=== PATIENT | male | born 1975 | race Native Hawaiian/Other Pacific Islander ===

== ENCOUNTER 2019-09-13 18:45 | Emergency (ER) | payer MEDICARE, MEDICAID ==
--- NOTE | 2019-09-13 19:26 | ED Physician Documentation ---
History of Present Illness - Stated complaint Stated Complaint: Leg swelling - Chief complaint Chief Complaint: Ext Problem - History obtained from History obtained from: Patient, Family - History of Present Illness Timing: Today (44-year-old gentleman presents with lower extremity edema, symmetric and painless. Is not associated with shortness of breath. He has a history of end-stage renal disease I think due to diabetic nephropathy. [place] and has not had dialysis in the last 2 days. There is no arrangement made ahead of time to get his dialysis after he moved. His crime scene analyst is a Dr. Goznalez at [facility] in [place]. He is completely anuric.) Review of Systems Ten Systems: 10 systems reviewed and negative Constitutional: denies: Fever, Chills Nose: denies: Rhinorrhea / runny nose Throat: denies: Sore throat Cardiac: denies: Chest pain / pressure, Palpitations Respiratory: denies: Dyspnea, Cough PD PAST MEDICAL HISTORY - Present Medications Home Medications: Ambulatory Orders Medication Instructions Recorded Confirmed Acetaminophen [Mapap] 325 mg PO Q6HR PRN 09/13/19 09/13/19 Atorvastatin Calcium 10 mg PO DAILY 09/13/19 09/13/19 Bisacodyl [C-Lax Laxative] 5 mg PO DAILY 09/13/19 09/13/19 Cinacalcet HCl 30 mg PO DAILY 09/13/19 09/13/19 Diltiazem HCl [Diltiazem 24Hr ER] 180 mg PO DAILY 09/13/19 09/13/19 Nitroglycerin [Nitrostat] 0.4 mg [id number] PRN PRN 09/13/19 09/13/19 Polyethylene Glycol 3350 2 applic PO TID 09/13/19 09/13/19 [Powderlax] Senna [Senokot] 8.6 mg PO BID 09/13/19 09/13/19 Sevelamer Carbonate 1,600 mg PO TID 09/13/19 09/13/19 Tamsulosin [Flomax] 0.4 mg PO DAILY 09/13/19 09/13/19 Warfarin Sodium 1 mg PO 1-2XD 09/13/19 09/13/19 Warfarin Sodium 5 mg PO DAILY 09/13/19 09/13/19 - Allergies Allergies/Adverse Reactions: Allergies Allergy/AdvReac Type Severity Reaction Status Date / Time No Known Drug Allergies Allergy Verified 09/13/19 18:48 PD ED PE NORMAL - Vitals Vital signs reviewed: Yes - General General: Alert and oriented X 3, No acute distress - HEENT HEENT: PERRL, EOMI - Neck Neck: Supple, no meningeal sign, No bony TTP - Cardiac Cardiac: RRR, No murmur - Respiratory Respiratory: No respiratory distress, Clear bilaterally - Abdomen Abdomen: Non tender - Back Back: No CVA TTP, No spinal TTP - Derm Derm: Normal color, Warm and dry - Extremities Extremities: Other (Massive pedal edema of both legs, symmetric. He is missing the fourth and fifth toes of the right foot, he has little ulcers on the second and third toes of the right foot and a small one on the second toe of the left foot.) - Neuro Neuro: Alert and oriented X 3, Normal speech Results - Vitals Vitals: Vital Signs - 24 hr 09/13/19 09/13/19 09/13/19 18:49 19:37 19:42 Temperature 37.0 C Heart Rate 74 78 Respiratory 20 18 20 Rate Blood Pressure 123/92 H 113/83 H O2 Saturation 93 99 09/13/19 19:54 Temperature Heart Rate Respiratory 20 Rate Blood Pressure O2 Saturation Oxygen O2 Source Room air - Labs Labs: Laboratory Tests 09/13/19 09/13/19 09/13/19 19:39 19:39 19:39 WBC 6.1 RBC 3.52 L Hgb 10.5 L Hct 32.9 L MCV 93.5 MCH 29.8 MCHC 31.9 L RDW 16.5 H Plt Count 102 L MPV 9.2 Neut # (Auto) 3.9 Lymph # (Auto) 1.2 L [place] # (Auto) 0.5 Eos # (Auto) 0.4 Baso # (Auto) 0.1 Absolute Nucleated RBC 0.00 Nucleated RBC % 0.0 PT INR Sodium 133 L Potassium 4.3 Chloride 92 L Carbon Dioxide 25 Anion Gap 16.0 H BUN 65 H Creatinine 8.5 H* Estimated GFR (MDRD) 7 L Glucose 143 H Calcium 9.2 Phosphorus 6.0 H Magnesium 2.9 H Total Bilirubin 1.7 H AST 12 ALT 10 Alkaline Phosphatase 126 H B-Natriuretic Peptide 363 H Total Protein 9.0 H Albumin 4.1 Globulin 4.9 H Albumin/Globulin Ratio 0.8 L Lipase 46 09/13/19 19:39 WBC RBC Hgb Hct MCV MCH MCHC RDW Plt Count MPV Neut # (Auto) Lymph # (Auto) [place] # (Auto) Eos # (Auto) Baso # (Auto) Absolute Nucleated RBC Nucleated RBC % PT 43.0 H INR 4.1 H Sodium Potassium Chloride Carbon Dioxide Anion Gap BUN Creatinine Estimated GFR (MDRD) Glucose Calcium Phosphorus Magnesium Total Bilirubin AST ALT Alkaline Phosphatase B-Natriuretic Peptide Total Protein Albumin Globulin Albumin/Globulin Ratio Lipase PD MEDICAL DECISION MAKING - ED course ED course: This is a 44-year-old gentleman with anasarca due to missing his dialysis today. Unfortunately we do not have dialysis at this facility. His crime scene analyst is a Peter Gonzalez in [place]. I will call them and see if we can make arrangements for him to have dialysis locally tomorrow. I was able to speak with his crime scene analyst, Dr. Peter Gonzalez in [place].He said it would not be possible to make arrangements for Outpatient dialysis tomorrow and recommended transfer for inpatient dialysis. Subsequently I spoke with the crime scene analyst at [facility], Dr. Fung who will see him in consultation and defers to the hospitalist service there for admission. Accepted to [facility] by Dr. Baker, the hospitalist there at approximately 8:50 PM and cobras were completed. Departure - Departure Disposition: 02 Transfer Acute Care Hosp Clinical Impression: Anasarca, ESRD (end stage renal disease) Condition: Serious
[2019-09-13 19:45] LABS: BASOPHILS # (AUTO) 0.1 10^3/uL (0.0-0.1); BASOPHILS % (AUTO) 0.8 %; EOSINOPHILS # (AUTO) 0.4 10^3/uL (0.0-0.7); EOSINOPHILS % (AUTO) 7.2 %; HGB - HEMOGLOBIN 10.5 g/dL (14.0-18.0); LYMPHOCYTES # (AUTO) 1.2 10^3/uL (1.5-3.5); LYMPHOCYTES % (AUTO) 19.9 %; MEAN CORPUSCULAR HEMOGLOBIN 29.8 pg (27.0-31.0); MEAN CORPUSCULAR HGB CONC 31.9 g/dL (32.0-36.0); MEAN CORPUSCULAR VOLUME 93.5 fL (80.0-94.0); MEAN PLATELET VOLUME 9.2 fL (7.4-11.4); MONOCYTES # (AUTO) 0.5 10^3/uL (0.0-1.0); MONOCYTES % (AUTO) 8.2 %; NEUTROPHILS # (AUTO) 3.9 10^3/uL (1.5-6.6); NEUTROPHILS % (AUTO) 63.4 %; PLT - PLATELET COUNT 102 10^3/uL (130-450); RED BLOOD COUNT 3.52 10^6/uL (4.70-6.10); RED CELL DISTRIBUTION WIDTH 16.5 % (12.0-15.0); WHITE BLOOD COUNT 6.1 x10^3/uL (4.8-10.8)
[2019-09-13 20:02] LABS: ALBUMIN 4.1 g/dL (3.2-5.5); ALBUMIN/GLOBULIN RATIO 0.8 (1.0-2.2); BILIRUBIN,TOTAL 1.7 mg/dL (0.2-1.0); CALCIUM 9.2 mg/dL (8.5-10.3); CREATININE 8.5 mg/dL (0.6-1.2); MAGNESIUM 2.9 mg/dL (1.7-2.8)
[2019-09-13 20:43] LABS: INR 4.1 (0.8-1.2)
[2019-09-13] MEDS ORDERED: BACITRACIN ZINC OINT 1 PACKET TOP STA (21:43)
[2019-09-13 22:16] VITALS: BP 125/65
== END 2019-09-13 22:42 | disposition short-term general hospital (02) ==
LOC: ED 18:45
DX: E11.22 Type 2 diabetes mellitus with diabetic chronic kidney disease (principal); N18.6 End stage renal disease; Z99.2 Dependence on renal dialysis; R60.1 Generalized edema; E11.622 Type 2 diabetes mellitus with other skin ulcer; L97.529 Non-pressure chronic ulcer of other part of left foot with unspecified severity; L97.519 Non-pressure chronic ulcer of other part of right foot with unspecified severity; Z89.421 Acquired absence of other right toe(s)
CPT/HCPCS: 36415; 80053; 83690; 83735; 83880; 84100; 85025; 85610; 99284; 99285

== ENCOUNTER 2019-09-13 22:46 | Outpatient (CLI) | payer MEDICARE, MEDICAID | END 2019-09-13 22:47 | disposition short-term general hospital (02) | LOC: EMS 22:46 | PROVIDERS: ATTEND Surgery | DX: N18.6 End stage renal disease (principal); R60.0 Localized edema; Z99.2 Dependence on renal dialysis | CPT/HCPCS: A0425; A0428 ==

== ENCOUNTER 2019-11-07 00:27 | Outpatient (CLI) | payer MEDICARE, MEDICAID | END 2019-11-07 00:28 | disposition home or self-care (01) | LOC: EMS 00:27 | PROVIDERS: ATTEND Surgery | DX: R58 Hemorrhage, not elsewhere classified (principal) | CPT/HCPCS: A0425; A0429 ==

== ENCOUNTER 2019-11-07 00:49 | Emergency (ER) | payer MEDICARE, MEDICAID ==
--- NOTE | 2019-11-07 00:43 | ED Physician Documentation ---
History of Present Illness - Stated complaint Stated Complaint: BLEEDING FISTULA - History obtained from History obtained from: Patient, Family (Patient is a 44-year-old male who is a Monday dialysis patient george noticed some oozing to his fistula site called 911 and presents to the ER. Patient speaks some moan at baseline his family members here to translate denies any recent fevers or cough here to make sure bleeding is controlled for the AV fistula denies taking anticoagulation.) Review of Systems Constitutional: reports: Reviewed and negative Eyes: reports: Reviewed and negative Ears: reports: Reviewed and negative Nose: reports: Reviewed and negative Throat: reports: Reviewed and negative Cardiac: reports: Reviewed and negative Respiratory: reports: Reviewed and negative GI: reports: Reviewed and negative : reports: Reviewed and negative Skin: reports: Other (Bleeding from left upper extremity AV fistula site for dialysis Access.) Musculoskeletal: reports: Reviewed and negative Neurologic: reports: Reviewed and negative Psychiatric: reports: Reviewed and negative Endocrine: reports: Reviewed and negative Immunocompromised: reports: Reviewed and negative PD PAST MEDICAL HISTORY - Present Medications Home Medications: Ambulatory Orders Medication Instructions Recorded Confirmed Acetaminophen [Mapap] 325 mg PO Q6HR PRN 09/13/19 09/13/19 Atorvastatin Calcium 10 mg PO DAILY 09/13/19 09/13/19 Bisacodyl [C-Lax Laxative] 5 mg PO DAILY 09/13/19 09/13/19 Cinacalcet HCl 30 mg PO DAILY 09/13/19 09/13/19 Diltiazem HCl [Diltiazem 24Hr ER] 180 mg PO DAILY 09/13/19 09/13/19 Nitroglycerin [Nitrostat] 0.4 mg [id number] PRN PRN 09/13/19 09/13/19 Polyethylene Glycol 3350 2 applic PO TID 09/13/19 09/13/19 [Powderlax] Senna [Senokot] 8.6 mg PO BID 09/13/19 09/13/19 Sevelamer Carbonate 1,600 mg PO TID 09/13/19 09/13/19 Tamsulosin [Flomax] 0.4 mg PO DAILY 09/13/19 09/13/19 Warfarin Sodium 1 mg PO 1-2XD 09/13/19 09/13/19 Warfarin Sodium 5 mg PO DAILY 09/13/19 09/13/19 - Allergies Allergies/Adverse Reactions: Allergies Allergy/AdvReac Type Severity Reaction Status Date / Time No Known Drug Allergies Allergy Verified 09/13/19 18:48 PD ED PE NORMAL - Vitals Vital signs reviewed: Yes - General General: Alert and oriented X 3, No acute distress, Well developed/nourished - HEENT HEENT: Atraumatic, PERRL, Moist mucous membranes - Neck Neck: Supple, no meningeal sign - Cardiac Cardiac: RRR, No murmur, Strong equal pulses - Respiratory Respiratory: No respiratory distress, Clear bilaterally - Abdomen Abdomen: Normal bowel sounds, Soft, Non tender, Non distended - Rectal Rectal: Deferred - Back Back: No spinal TTP - Derm Derm: Normal color, Warm and dry, No rash - Extremities Extremities: No deformity, Other (Left upper extremity brachial AV fistula with good thrill and home there is minimal oozing from the site and there is no crepitus there is no obvious fluctuation or induration bleeding is controlled with direct pressure. Radian, median, ulnar motor and sensory exam are intact of bilateral upper extremities cap refills less than 2 seconds. Compartments are soft neurovascularly intact.) - Neuro Neuro: Alert and oriented X 3 - Psych Psych: Normal mood, Normal affect Results - Vitals Vitals: Vital Signs - 24 hr 11/07/19 11/07/19 11/07/19 00:55 01:09 01:20 Temperature 36.2 C L Heart Rate 97 107 H 80 Respiratory 18 19 18 Rate Blood Pressure 93/49 L 108/54 L 108/54 L O2 Saturation 87 L 96 100 11/07/19 01:39 Temperature Heart Rate 93 Respiratory 19 Rate Blood Pressure 98/57 L O2 Saturation 97 Oxygen O2 Source Room air Procedures - General procedure General procedure: Direct pressure was applied to the left upper extremity AV fistula bleeding was controlled simple dressing was placed with gauze and Covan. There is a good thrill in home after bleeding was controlled radian median ulnar motor and sensory exam are intact compartments are and soft and neurovascular intact. PD MEDICAL DECISION MAKING - ED course Complexity details: considered differential (Left upper extremity AV fistula bleeding now stopped with direct pressure plan is to go to dialysis today as scheduled.) Departure - Departure Disposition: 01 Home, Self Care Clinical Impression: Complication of AV dialysis fistula Qualifiers: Encounter type: initial encounter Qualified Code(s): T82.9XXA - Unspecified complication of cardiac and vascular prosthetic device, implant and graft, initial encounter Condition: Stable Instructions: Dialysis Arteriovenous Fistula Follow-Up: your, doctor [Other] - 11/07/19 Comments: go to dialysis today at 6 am as scheduled.
[2019-11-07 01:40] VITALS: BP 98/57
== END 2019-11-07 02:00 | disposition home or self-care (01) ==
LOC: EDBD → EDUNIT# → ED 00:49
DX: T82.898A Other specified complication of vascular prosthetic devices, implants and grafts, initial encounter (principal); Z99.2 Dependence on renal dialysis
CPT/HCPCS: 36415; 99283; 99284

== ENCOUNTER 2019-11-22 14:59 | Outpatient (CLI) | payer MEDICARE, MEDICAID | END 2019-11-22 15:00 | disposition critical access hospital (66) | LOC: EMS 14:59 | PROVIDERS: ATTEND Surgery | DX: R50.9 Fever, unspecified (principal); R06.02 Shortness of breath; Z99.2 Dependence on renal dialysis; M79.662 Pain in left lower leg; M79.661 Pain in right lower leg; R60.9 Edema, unspecified | CPT/HCPCS: A0425; A0427 ==

== ENCOUNTER 2019-11-22 15:24 | Emergency (ER) | payer MEDICARE, MEDICAID ==
[2019-11-22] MEDS ORDERED: CEFEPIME 2 GM in SODIUM CHLORIDE 0.9% MINIBAG 100 ML IV STA (16:20)
[2019-11-22] MEDS ORDERED: SODIUM CHLORIDE 0.9% 500 ML IV STA (16:20)
[2019-11-22] MEDS ORDERED: VANCOMYCIN INJ 2 GM in SODIUM CHLORIDE 0.9% 500 ML IV STA (16:20)
--- NOTE | 2019-11-22 16:22 | ED Physician Documentation ---
PD HPI CHEST PAIN - Stated complaint Stated Complaint: SOA - Chief complaint Chief Complaint: Cardiac - History obtained from History obtained from: Patient, EMS - History of Present Illness Timing - onset: Other (84-year-old gentleman with history of dialysis dependence presents with fever and hypotension. He is a vague and rambling historian, seems slightly delirious and hard to get a specific history out of. I am able to ascertain that he gets dialysis on Monday, , and Monday. His family court counsellor is Dr. Louis. He was complaining of chest pain. He was noted to be in atrial fibrillation on the way here. After [address] his heart rate is around 100 and on my initial evaluation his blood pressure is 77/52 or so.) Review of Systems Unable to obtain: AMS PD PAST MEDICAL HISTORY - Past Medical History Cardiovascular: None Respiratory: None Neuro: None Endocrine/Autoimmune: Type 2 diabetes GI: None : Other HEENT: None Psych: None Musculoskeletal: Other Derm: None - Past Surgical History Past Surgical History: Yes General: Other Ortho: Other - Present Medications Home Medications: Ambulatory Orders Medication Instructions Recorded Confirmed Acetaminophen [Mapap] 325 mg PO Q6HR PRN 09/13/19 09/13/19 Atorvastatin Calcium 10 mg PO DAILY 09/13/19 09/13/19 Bisacodyl [C-Lax Laxative] 5 mg PO DAILY 09/13/19 09/13/19 Cinacalcet HCl 30 mg PO DAILY 09/13/19 09/13/19 Diltiazem HCl [Diltiazem 24Hr ER] 180 mg PO DAILY 09/13/19 09/13/19 Nitroglycerin [Nitrostat] 0.4 mg [id number] PRN PRN 09/13/19 09/13/19 Polyethylene Glycol 3350 2 applic PO TID 09/13/19 09/13/19 [Powderlax] Senna [Senokot] 8.6 mg PO BID 09/13/19 09/13/19 Sevelamer Carbonate 1,600 mg PO TID 09/13/19 09/13/19 Tamsulosin [Flomax] 0.4 mg PO DAILY 09/13/19 09/13/19 Warfarin Sodium 1 mg PO 1-2XD 09/13/19 09/13/19 Warfarin Sodium 5 mg PO DAILY 09/13/19 09/13/19 - Allergies Allergies/Adverse Reactions: Allergies Allergy/AdvReac Type Severity Reaction Status Date / Time No Known Drug Allergies Allergy Unverified 08/21/19 16:04 - Social History Does the pt smoke?: No Smoking Status: Never smoker Does the pt drink ETOH?: No Does the pt have substance abuse?: No - Immunizations Immunizations are current?: No - POLST Patient has POLST: No PD ED PE NORMAL - Vitals Vital signs reviewed: Yes - General General: Other (He is alert oriented to place, but not time or condition. He is cooperative.) - HEENT HEENT: PERRL, EOMI - Neck Neck: Supple, no meningeal sign, No bony TTP - Cardiac Cardiac: Other (Irregularly irregular) - Respiratory Respiratory: No respiratory distress, Clear bilaterally - Abdomen Abdomen: Non tender - Back Back: No CVA TTP, No spinal TTP - Derm Derm: Normal color, Warm and dry - Extremities Extremities: Other (Significant lower extremity pedal edema) - Neuro Neuro: Alert and oriented X 3, Normal speech - Psych Psych: Normal mood, Normal affect Results - Vitals Vitals: Vital Signs - 24 hr 11/22/19 11/22/19 11/22/19 15:30 15:42 16:12 Temperature 38.7 C H Heart Rate 112 H 92 54 L Respiratory 20 16 14 Rate Blood Pressure 89/52 L 95/53 L 90/60 O2 Saturation 100 97 97 11/22/19 11/22/19 11/22/19 16:30 17:00 18:00 Temperature 37.7 C H Heart Rate 52 L 55 L 83 Respiratory 14 16 18 Rate Blood Pressure 91/60 98/78 93/50 L O2 Saturation 97 95 99 11/22/19 11/22/19 11/22/19 18:30 19:00 19:30 Temperature Heart Rate 82 80 83 Respiratory 14 22 16 Rate Blood Pressure 94/52 L 95/70 93/65 O2 Saturation 98 100 98 11/22/19 11/22/19 19:55 20:00 Temperature 38 C H 38 C H Heart Rate 88 88 Respiratory 16 16 Rate Blood Pressure 88/60 L 88/60 L O2 Saturation 98 98 Oxygen O2 Source Room air - EKG (time done) 1541 Rate: Rate (enter#) (130) Rhythm: Atrial fibrillation (with PVCs) [place]: RAD Intervals: Normal AL Ischemia: Non specific changes Computer interpretation: Agree with computer - Labs Labs: Laboratory Tests 11/22/19 11/22/19 11/22/19 16:17 16:17 16:17 WBC 9.4 RBC 2.92 L Hgb 8.8 L Hct 28.8 L MCV 98.6 H MCH 30.1 MCHC 30.6 L RDW 18.1 H Plt Count 143 MPV 10.0 Neut # (Auto) 7.5 H Lymph # (Auto) 0.7 L [place] # (Auto) 0.8 Eos # (Auto) 0.3 Baso # (Auto) 0.1 Absolute Nucleated RBC 0.00 Nucleated RBC % 0.0 Sodium 132 L Potassium 3.8 Chloride 93 L Carbon Dioxide 25 Anion Gap 14.0 H BUN 39 H Creatinine 6.3 H Estimated GFR (MDRD) 10 L Glucose 160 H Lactic Acid Calcium 8.0 L Total Bilirubin 1.8 H AST 14 ALT 14 Alkaline Phosphatase 125 H Troponin I High Sens 19.9 H* Total Protein 8.0 Albumin 3.2 Globulin 4.8 H Albumin/Globulin Ratio 0.7 L Lipase 35 11/22/19 16:35 WBC RBC Hgb Hct MCV MCH MCHC RDW Plt Count MPV Neut # (Auto) Lymph # (Auto) [place] # (Auto) Eos # (Auto) Baso # (Auto) Absolute Nucleated RBC Nucleated RBC % Sodium Potassium Chloride Carbon Dioxide Anion Gap BUN Creatinine Estimated GFR (MDRD) Glucose Lactic Acid 1.3 Calcium Total Bilirubin AST ALT Alkaline Phosphatase Troponin I High Sens Total Protein Albumin Globulin Albumin/Globulin Ratio Lipase PD MEDICAL DECISION MAKING - ED course ED course: 44-year-old gentleman with end-stage renal disease presents delirious with a fever, borderline hypotension which responded to fluids. Negative lactate normal white count. Chest x-ray shows atelectasis without obvious pneumonia. He is an uric chronically. He was able to verbalize that he was willing to go to [place] for further evaluation and treatment given the need for admission, delirium, and end-stage renal disease with dialysis dependence. But he remained fairly delirious. He received cefepime and vancomycin for broad-spectrum antibiotic coverage after blood cultures were drawn. After some delays due to shift change she was accepted by Dr. Bajwa to [facility], he is stable for transport. I also consulted with his family court counsellor, Dr. Houser who will see him in consultation when he is notified by the hospitalist service. Departure - Departure Disposition: 02 Transfer Acute Care Hosp Clinical Impression: ESRD (end stage renal disease), Delirium due to another medical condition Fever Qualifiers: Fever type: due to other condition Qualified Code(s): R50.81 - Fever presenting with conditions classified elsewhere Condition: Stable
[2019-11-22 16:37] LABS: BASOPHILS # (AUTO) 0.1 10^3/uL (0.0-0.1); BASOPHILS % (AUTO) 0.6 %; EOSINOPHILS # (AUTO) 0.3 10^3/uL (0.0-0.7); EOSINOPHILS % (AUTO) 2.8 %; HGB - HEMOGLOBIN 8.8 g/dL (14.0-18.0); LYMPHOCYTES # (AUTO) 0.7 10^3/uL (1.5-3.5); LYMPHOCYTES % (AUTO) 7.2 %; MEAN CORPUSCULAR HEMOGLOBIN 30.1 pg (27.0-31.0); MEAN CORPUSCULAR HGB CONC 30.6 g/dL (32.0-36.0); MEAN CORPUSCULAR VOLUME 98.6 fL (80.0-94.0); MONOCYTES # (AUTO) 0.8 10^3/uL (0.0-1.0); MONOCYTES % (AUTO) 8.6 %; NEUTROPHILS # (AUTO) 7.5 10^3/uL (1.5-6.6); NEUTROPHILS % (AUTO) 80.3 %; PLT - PLATELET COUNT 143 10^3/uL (130-450); RED BLOOD COUNT 2.92 10^6/uL (4.70-6.10); RED CELL DISTRIBUTION WIDTH 18.1 % (12.0-15.0); WHITE BLOOD COUNT 9.4 x10^3/uL (4.8-10.8)
[2019-11-22 16:49] LABS: ALBUMIN 3.2 g/dL (3.2-5.5); ALBUMIN/GLOBULIN RATIO 0.7 (1.0-2.2); BILIRUBIN,TOTAL 1.8 mg/dL (0.2-1.0); CREATININE 6.3 mg/dL (0.6-1.2)
--- NOTE | 2019-11-22 18:15 | XRAY Report ---
Reason: CHEST PAIN Procedure Date: 11/22/2019 Accession Number: [id number] / [id number] Procedure: XR - Chest 1 View X-Ray CPT Code: 59601 Final Report FULL RESULT: EXAM: CHEST RADIOGRAPHY EXAM DATE: 11/22/2019 06:06 PM. CLINICAL HISTORY: CHEST PAIN. COMPARISON: None. TECHNIQUE: 1 view. FINDINGS: Lungs/Pleura: Right basilar atelectasis No pleural effusion. No pneumothorax. Low lung volumes. Mediastinum: Cardiomegaly. Accentuated by low lung volumes Other: None. IMPRESSION: 1. Right basilar atelectasis. 2. Cardiomegaly. Accentuated by low lung volumes RADIA
[2019-11-22 20:31] VITALS: BP 106/67
== END 2019-11-22 20:50 | disposition short-term general hospital (02) ==
LOC: EDUNIT# → EDBD → ED 15:24
DX: E11.22 Type 2 diabetes mellitus with diabetic chronic kidney disease (principal); N18.6 End stage renal disease; Z99.2 Dependence on renal dialysis; F05 Delirium due to known physiological condition; R50.81 Fever presenting with conditions classified elsewhere; I95.9 Hypotension, unspecified; J98.11 Atelectasis; I48.91 Unspecified atrial fibrillation; I49.3 Ventricular premature depolarization; I45.81 Long QT syndrome; Z79.01 Long term (current) use of anticoagulants
CPT/HCPCS: 36415; 71045; 80053; 83605; 83690; 84484; 85025; 87040; 87181; 93005; 96365; 96366; 96368; 99285; J3370

== ENCOUNTER 2019-11-22 20:42 | Outpatient (CLI) | payer MEDICARE, MEDICAID | END 2019-11-22 20:43 | disposition short-term general hospital (02) | LOC: EMS 20:42 | PROVIDERS: ATTEND Surgery | DX: R50.9 Fever, unspecified (principal); R41.0 Disorientation, unspecified; Z74.01 Bed confinement status | CPT/HCPCS: A0425; A0426 ==